=== PATIENT | male | born 1980 | race Caucasian/White ===

== ENCOUNTER 2021-11-23 18:19 | Emergency (ER) | payer BC ==
[~2021-11-23] VITALS: Ht 195.5 cm; Wt 193.5 kg
[2021-11-23 18:26] VITALS: BP 187/103
[2021-11-23] MEDS ORDERED: TRM50T PO (18:35)
[2021-11-23] MEDS ORDERED: AMOXICILLIN 500 MG (POLYMOX) CAP PO STA (18:36)
--- NOTE | 2021-11-23 18:36 | ED EENT ---
History of Present Illness General Chief Complaint: Dental Problems/Pain Stated Complaint: JAW SWELLING Source: patient Exam Limitations: no limitations History of Present Illness Date Seen by Provider: Nov 23, 2021 Time Seen by Provider: 18:23 Initial Comments 40-year-old male with no significant past medical history coming in due to right upper tooth pain. Has been going on for roughly 2 days, throbbing, severe, constant. Took ibuprofen earlier today which did help. He does know that he eventually needs multiple teeth pulled. He has been trying to get into a dentist, but they have been full. No fever that he knows of or significant swelling to his face. No difficulty swallowing or voice changes. Is otherwise denying any other acute complaints. Allergies and Home Medications Allergies Coded Allergies: No Known Drug Allergies (Unverified , 11/23/21) Patient Home Medication List Home Medication List Reviewed: Yes Tramadol HCl (Tramadol HCl) 50 Mg Tablet, 50 MG PO Q6H PRN for PAIN Prescribed by: FRANCESCA PETTY on 11/23/21 7473 Review of Systems Review of Systems Constitutional: No chills Eyes: Denies Blurred Vision Ears: No Symptoms Reported Nose: no symptoms reported Mouth: other (tooth pain) Throat: no symptoms reported Respiratory: no symptoms reported Cardiovascular: no symptoms reported Gastrointestinal: no symptoms reported Musculoskeletal: no symptoms reported Skin: no symptoms reported Neurological: No Symptoms Reported Hematologic/Lymphatic: No Symptoms Reported Immunological/Allergic: no symptoms reported All Other Systems Reviewed Negative Unless Noted: Yes Past Valwqto-Ffovqf-Xdpijb Hx Patient Social History Tobacco Use?: No Smoking Status: Former Smoker Substance use?: No Alcohol Use?: No Pt feels they are or have been: No Immunizations Up To Date COVID19 Vaccine Carton [employer]: [employer] Past Medical History Surgeries: No Physical Exam Vital Signs Vital Signs - First Documented 11/23/21 18:26 Temp 35.7 Pulse 83 Resp 18 B/P (MAP) 187/103 (131) Pulse Ox 97 O2 Delivery Room Air Height, Weight, BMI Height: '" Weight: lbs. oz. kg; BMI Method: General Appearance: WD/WN, no apparent distress Eyes: bilateral eye normal inspection, bilateral eye PERRL Ears: bilateral ear auricle normal Nose: normal inspection Mouth/Throat: pharynx normal, dental tenderness; No mandibular swelling, No maxillary swelling, No pharynx swelling, No tongue swollen, No tonsillar exudate, No trismus, No uvula swelling, No voice changes Neck: non-tender, full range of motion, supple, normal inspection Cardiovascular: regular rate, rhythm, no edema, no murmur Respiratory: chest non-tender, lungs clear, normal breath sounds, no respiratory distress, no accessory muscle use Gastrointestinal: normal bowel sounds, non tender, soft; No distended, No guarding, No rebound Neurologic/Psychiatric: no motor/sensory deficits, alert, normal mood/affect Skin: normal color, warm/dry Progress/Results/Core Measures Results/Orders Vital Signs/I&O 11/23/21 18:26 Temp 35.7 Pulse 83 Resp 18 B/P (MAP) 187/103 (131) Pulse Ox 97 O2 Delivery Room Air Progress Progress Note : Progress Note 40-year-old male with above history coming in due to dental pain. ABCs were intact and vitals were stable on presentation. He has no palpable abscess or swelling that is seen on my exam. He does have multiple dental caries and multiple teeth that are fractured. Most of his tenderness are right upper molars which there are multiple that could be the culprit. We will give him a first dose of antibiotics here as well as 1 dose of hydrocodone to get him through the night until the antibiotic start working. He has dental insurance I did recommend that he follow-up to have these teeth pulled. He was then discharged home in stable condition with strict return precautions. Departure Impression Primary Impression: Pain due to dental caries Disposition: 01 HOME, SELF-CARE Condition: Stable Departure-Patient Inst. Decision time for Depature: 18:34 Referrals: NO,LOCAL PHYSICIAN (PCP/Family) Primary Care Physician Patient Instructions: Dental Pain ED Add. Discharge Instructions: I have sent antibiotics to [facility], but these will not fix the issue. Please try to get an appointment with a dentist within the next week or so to get the teeth removed. Take ibuprofen 600 mg every 6 hours as needed for pain. You can take 1000mg of Tylenol every 6-8 hours as well for pain. Take the tramadol for pain exceeding this. Scripts Penicillin V Potassium (Penicillin V Potassium) 500 Mg Tablet 500 MG PO Q6H for 7 Days, #28 TAB Prov: FRANCESCA PETTY MD 11/23/21 Tramadol HCl (Tramadol HCl) 50 Mg Tablet 50 MG PO Q6H PRN for PAIN for 3 Days, #12 TAB 0 Refills Prov: FRANCESCA PETTY MD 11/23/21 Work/School Note: Work Release Form Date Seen in the Emergency Department: Nov 23, 2021 Return to Work: Nov 25, 2021 Restrictions: No Restrictions FRANCESCA PETTY MD Nov 23, 2021 18:36
[2021-11-23] MEDS ORDERED: PENI500T PO (18:38)
[2021-11-23] MEDS ORDERED: HYDROcodone/APAP 5 MG/325 MG (LORTAB) TAB PO ONE (18:45)
== END 2021-11-23 18:42 | disposition home or self-care (01) ==
LOC: ER FS 18:21
DX: K02.9 Dental caries, unspecified (principal); Z87.891 Personal history of nicotine dependence
CPT/HCPCS: 99283